=== PATIENT | female | born 1965 | race Caucasian/White ===

== ENCOUNTER 2024-02-21 12:50 | Emergency (ER) | payer OTHER, SELFPAY ==
[2024-02-21 12:54] VITALS: BP 162/92; PULSE 69; RESP 14; TEMP 37.1; O2SAT 99
--- NOTE | 2024-02-21 13:30 | DI.RAD_ITS ---
Exam(s) XR SHOULDER RT COMPLETE 2+V EXAM: XR SHOULDER RT COMPLETE 2+V CLINICAL HISTORY: right shoulder injury. TECHNIQUE: 2D digital imaging was performed. COMPARISON: No exams were available for comparison FINDINGS: Five views. No evidence of fracture or dislocation of the glenohumeral joint. AC joint unremarkable. No obvious degenerative changes. Main finding here is a 3 millimeter calcific density in the soft tissues immediately adjacent to the greater tuberosity consistent with calcific rotator cuff tendinitis. Does not have the appearance of an acute fracture fragment. IMPRESSION: Calcific rotator cuff tendinitis. No obvious fractures. DATA REPOSITORY: RADIATION DOSE DELIVERED:
--- NOTE | 2024-02-21 15:53 | W.ED.GENAD ---
Discharge Plan Disposition Patient Disposition: Home Condition: Stable Discharge Details Clinical Impression: Acute shoulder pain, Calcific tendinitis Primary Care Provider: Unknown,Unknown ED Provider: Shruti Ortiz Home Meds and New Rx's Prescriptions: New prednisone 20 mg tablet 40 mg PO ONCE Qty: 10 0RF prednisone 20 mg tablet 40 mg PO ONCE Qty: 10 0RF Continued ibuprofen [Advil] 200 mg tablet 600 mg PO TID Discharge Instructions Instructions: Overuse Injuries Additional Instructions: Continue to range your shoulder so it does not become stiff Take the prednisone daily Apply Voltaren gel or diclofenac gel/ibuprofen gel topically Tylenol 650 every 4-6 hours as needed for discomfort Follow-up with physical therapy and her primary care physician when you return home and return earlier should you have new or worsening complaints occluding fever, chills, worsening pain HPI General Date/Time Provider Initiated Documentation: 02/21/24 13:25. HPI Narrative: 58-year-old female presenting with right shoulder injury, was lifting some luggage yesterday when she felt pain immediately in her right shoulder. [id number]. Denies any additional injuries, chest pain, shortness of breath or any additional complaints at this time. Pain is exacerbated with any sort of movement Related Data Home Medications ?Medication ?Instructions ?Recorded ?Confirmed ibuprofen 200 mg tablet (Advil) 600 mg PO TID 02/21/24 02/21/24 prednisone 20 mg tablet 40 mg (2 x 20 mg) PO ONCE #10 tabs 02/21/24 prednisone 20 mg tablet 40 mg (2 x 20 mg) PO ONCE #10 tabs 02/21/24 Previous Rx's ?Medication ?Instructions ?Recorded prednisone 20 mg tablet 40 mg (2 x 20 mg) PO ONCE #10 tabs 02/21/24 prednisone 20 mg tablet 40 mg (2 x 20 mg) PO ONCE #10 tabs 02/21/24 Allergies Allergy/AdvReac Type Severity Reaction Status Date / Time No Known Allergies Allergy Unverified 02/21/24 13:01 General Stated Complaint: Orthopedic KARI: 4 Exam Narrative Exam Narrative: Right shoulder with tenderness, no visible evidence of trauma, neurovascularly intact, decreased abduction, abduction, flexion, external rotation, Course Vital Signs Vital signs: Vital Signs Temperature 37.1 C 02/21/24 12:54 Pulse 69 02/21/24 12:54 Respiratory Rate 14 02/21/24 12:54 Blood Pressure 162/92 H 02/21/24 12:54 Pulse Oximetry 99 02/21/24 12:54 Temperature 37.1 C 02/21/24 12:54 Temperature Source Skin 02/21/24 12:54 Pulse 69 02/21/24 12:54 Respiratory Rate 14 02/21/24 12:54 Respiratory Effort Normal 02/21/24 15:08 Blood Pressure 162/92 H 02/21/24 12:54 Blood Pressure Position Sitting 02/21/24 12:54 Pulse Oximetry 99 02/21/24 12:54 Oxygen Delivery Method Room Air 02/21/24 12:54 Oxygen Flow Rate 0 02/21/24 12:54 Pain Level 7 02/21/24 15:08 Medical Decision Making 58-year-old female presenting with acute distress with any sort of movement of her right shoulder. X-ray was ordered for further evaluation which shows evidence of possible calcific tendinitis. Patient's exam is limited secondary to pain. She was given half a tablet of oxycodone. She was also given a sling, although we did review frozen shoulder precautions as patient is significantly guarding her shoulder and limiting movement. She will need follow-up in [place] when she returns home. She will apply diclofenac gel [id number] and use her sling only when she is up and walking around. Return precautions reviewed and patient expressed understanding, no evidence of septic arthritis, no chest pain, no shortness of breath, suspect calcific tendinitis versus rotator cuff injury with need for outpatient PT or PCP reassessment next week. Quality:SDOH Health Related Social Needs: No Data to Display PFSH All Active Problems (Updated 02/21/24 @ 14:29 by DOTTIE Blank) Calcific tendinitis (Acute) Acute shoulder pain (Acute) Social History Smoking/Tobacco Use Status: Never Smoking risk assessment performed?: Yes Alcohol Intake: current Alcohol Intake frequency: a few times a week Substance use type: does not use Housing: house
== END 2024-02-21 15:08 | disposition home or self-care (01) ==
PROVIDERS: Emergency Provider Physician Assistant
DX: M65.221 Calcific tendinitis, right upper arm (principal)
CPT/HCPCS: 99283; 73030